=== PATIENT | female | born 1940 | race Caucasian/White ===

== ENCOUNTER → 2017-02-08 | Outpatient (CLI) | payer MEDICARE ==
--- NOTE | 2017-02-09 08:09 | REP ---
Clinical: Pulmonary nodule follow-up. Comparison: 04/06/2016. Findings: The somewhat ill-defined, spiculated, semisolid focus in the left upper lobe (images 31 - 34) is essentially unchanged allowing for differences in technique. The remainder of lung cheema are well-aerated and essentially clear without consolidation, further nodule or mass lesion. Very minimal scarring to the medial right upper lobe and lingula are again identified and unchanged. No pleural effusion/reaction. No pneumothorax. Tracheobronchial tree is patent. No obvious adenopathy. The mediastinum including thoracic aorta, heart and pericardium remains stable. Surrounding musculoskeletal structures demonstrate age-related degenerative changes and a very subtle chronic compression deformity at T9 is again noted. Impression: 1. Ill-defined semisolid focus in the left upper lobe is unchanged from prior examination. Consider 9 - 12 month follow-up to better ensure stability and chronic focus. No significant mediastinal or pleuroparenchymal process otherwise noted. 2. 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 Signed by Son Love MD 02/09/2017 08:00 A
== END ==
LOC: M RAD 16:35
PROVIDERS: ATTEND Family Medicine
DX: R91.1 Solitary pulmonary nodule (principal); M51.34 Other intervertebral disc degeneration, thoracic region

== ENCOUNTER → 2017-04-05 | Outpatient (CLI) | payer MEDICARE ==
[~2017-04-05] MED LIST: CENTTAB; IBUP200C10 PO; LEXA5TAB13 PO; RIVA1DIS2 TD; TYLE500T78 PO
--- NOTE | 2017-04-05 15:30 | REP ---
MAXILLOFACIAL CT WITHOUT CONTRAST: HISTORY: Mucosal thickening. 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 Mild mucosal thickening is present in the right maxillary sinus. Minimal mucosal thickening is present in the left maxillary and left sphenoid sinuses. The remaining sinuses are clear. The osteomeatal units are patent. The middle and inferior nasal turbinates are partially paradoxical. There is mild deviation of the nasal septum to the right. A spur is present arising from the right side of the nasal septum. The cribriform plate, medial finch, of the orbits, and optic canals are intact. The carotid canals form a segment of the posterolateral finch of the sphenoid sinus. IMPRESSION: Sinus mucosal thickening as described above. Signed by Guille Shetty MD 04/05/2017 03:39 P
--- NOTE | 2017-04-05 16:00 | REP ---
CT LUMBAR SPINE WITHOUT CONTRAST: HISTORY: Back pain. A diffuse disc bulge is present at the L1-2 level. There is minimal compression of the thecal sac. There is hypertrophy of the posterior articulating facets. The L1 nerves exit the neural foramina without compression. A diffuse disc bulge is present at the L2-3 level. There is hypertrophy of the ligamenta flava and posterior articulating facets. These findings produce moderate central canal stenosis. There is compression of the L2 nerves in the neural foramina. A diffuse disc bulge is present at the L3-4 level. There is hypertrophy of the ligamenta flava and the posterior articulating facets. These findings produce moderate central canal stenosis. There is compression of the L3 nerves in the neural foramina. A diffuse disc bulge is present at the L4-5 level. There is hypertrophy of the ligamenta flava and posterior articulating facets. These findings produce severe central canal stenosis. There is compression of the L4 nerves in the neural foramina. A diffuse disc bugle with associated osteophyte formation is present at the L5-S1 level. There is hypertrophy of the ligamenta flava and posterior articulating facets. These finding produce moderate central canal stenosis. There is compression of the L5 nerves in the neural foramina. The L1-2 through L5-S1 intervertebral discs are decreased in height. A vacuum phenomenon is present at the L1-2 through L3-4 and L5-S1 levels. These findings are consistent with disc degeneration. There is scoliosis convex to the left. IMPRESSION: 1. Diffuse disc bulge at the L1-2 level with minimal thecal sac compression. 2. Moderate central canal stenosis at the L2-3 and L3-4 levels secondary to disc bulge, ligamentous, and facet hypertrophy. 3. Severe central canal stenosis at the L4-5 level secondary to disc bulge, ligamentous and facet hypertrophy. 4. Moderate central canal stenosis at the L5-S1 level secondary to disc bugle, ligamentous and facet hypertrophy and osteophyte formation. Signed by Guille Shetty MD 04/05/2017 04:13 P
== END ==
LOC: M RAD 14:50
PROVIDERS: ATTEND Family Medicine
DX: M54.5 Low back pain (principal); J01.90 Acute sinusitis, unspecified; M51.06 Intervertebral disc disorders with myelopathy, lumbar region; M48.06 Spinal stenosis, lumbar region; M24.28 Disorder of ligament, vertebrae

== ENCOUNTER 2017-04-22 10:54 | Emergency (ER) | payer MEDICARE ==
[~2017-04-22] VITALS: Ht 162.6 cm; Wt 58.2 kg
[2017-04-22] MEDS ORDERED: CENTTAB (11:13)
[2017-04-22] MEDS ORDERED: RIVA1DIS2 TD (11:13)
[2017-04-22] MEDS ORDERED: LEXA5TAB13 PO (11:13)
[2017-04-22] MEDS ORDERED: TYLE500T78 PO (11:13)
[2017-04-22] MEDS ORDERED: IBUP200C10 PO (11:14)
--- NOTE | 2017-04-22 13:31 | REP ---
RIGHT LOWER EXTREMITY DOPPLER VENOUS ULTRASOUND: 04/22/2017. Comparison: None. Technique: The deep venous system of the right lower extremity is evaluated with joseph scale imaging, compression ultrasound, color imaging and duplex Doppler interrogation. Examination from the groin through the popliteal fossa into the proximal calf. Findings: There is full compressibility from the common femoral vein in the inguinal region through the popliteal vein. Color imaging confirms patency throughout the course of the deep venous system. There is respiratory variation and augmented flow at all levels. Incidentally noted is a Brady's cyst in the popliteal fossa, 3.1 x 1.3 x 2.1 cm. Impression: 1. No Doppler venous ultrasound evidence of DVT in the right lower extremity. 2. Brady's cyst in the popliteal fossa. Signed by Meng Vegas MD 04/22/2017 01:22 P
[2017-04-22 13:49] VITALS: BP 128/76
== END 2017-04-22 13:50 | disposition home or self-care (01) ==
LOC: M ED 10:54
DX: M71.21 Synovial cyst of popliteal space [Baker], right knee (principal); M25.561 Pain in right knee; M54.9 Dorsalgia, unspecified; Z87.891 Personal history of nicotine dependence; Z79.899 Other long term (current) drug therapy